=== PATIENT | female | born 1950 | race Caucasian/White ===

== ENCOUNTER 2016-06-30 14:20 | Emergency (ER) | payer MEDICAID ==
[2016-06-30] MEDS ORDERED: SUBLIMAZE 100 MCG/2 ML IV ONE (15:10)
[2016-06-30] MEDS ORDERED: Zofran 4 MG/2 ML VIAL IV ONE (15:10)
--- NOTE | 2016-06-30 15:13 | ERPHSYRPT ---
- History of Present Illness Time Seen by Provider: 06/30/16 14:45 Historian: patient Exam Limitations: clinical condition Patient Subjective Stated Complaint: PT CO PAIN TO RIGHT RIB FOR 5 DAYS NOW. AND SOB FOR ABOUT A WEEK NOW, NO CO OR FEVER, FLUSHED FEELING. NO COUGH. ALSO CO GERD WITH BLECHING THAT IS NEW FOR HER WHILE Triage Nursing Assessment: PT IS ALERT, SKIN W/D PINK,.RESP EASY, CHEST CLEAR, NO EDEMA NOTED, MOVES ALL EXT WELL , PT WAS ABLE TO WALK IN WITHOUT DIFFICULTY Physician History: PATIENT WITH HISTORY OF METASTATIC LEFT BREAST DISEASE TO HER THORCIC SPINE, COMPLAINS OF RIGHT SIDED RIB PAIN FOR 5 DAYS, PAIN UPON INSPIRATION AND MOTION OF TORSO. DENIES COUGH, DYSPNEA, FEVER, CHILLS AND DYSPNEA. DENIES INJURY OR TRAUMA. PATIENT COMPLAINS OF REFLUX SYMPTOMS BURPING AND BELCHING PAST WEEK. Timing/Duration: day(s) Activities at Onset: none Quality: sharpness Location: other (RIGHT LATERAL CHEST WALL PAIN) Severity of Pain-Max: mild Severity of Pain-Current: mild Modifying Factors: Improves With: breathing, movement, change in position Associated Symptoms: hurts to breathe Prior Chest Pain/Cardiac Workup: no prior chest pain Nitro Today/Relief: no nitro taken today Aspirin Treatment Today: no aspirin today Allergies/Adverse Reactions: palbociclib [From [place]] Allergy (Verified 06/30/16 14:44) Home Medications: Fulvestrant [Faslodex] 125 mg IM UD 01/30/16 [History] Gabapentin [Neurontin] 100 mg PO TID 01/30/16 [History] Hydrocodone Bit/Acetaminophen [[place] 5-325 Tablet] 1 each PO Q6H PRN 01/30/16 [ History] Naproxen [Naprosyn] 500 mg PO BID 01/30/16 [History] Hx Tetanus, Diphtheria Vaccination/Date Given: No Hx Influenza Vaccination/Date Given: No Hx Pneumococcal Vaccination/Date Given: No Immunizations Up to Date: Yes - Review of Systems Constitutional: No Fever, No Chills Eyes: No Symptoms Ears, Nose, & Throat: No Symptoms Respiratory: No Symptoms, No Cough, No Dyspnea Cardiac: Chest Pain, No Edema, No Syncope Abdominal/Gastrointestinal: No Symptoms, No Abdominal Pain, No Nausea, No Vomiting, No Diarrhea Genitourinary Symptoms: No Symptoms, No Dysuria Musculoskeletal: No Symptoms, No Back Pain, No Neck Pain Skin: No Symptoms, No Rash Neurological: No Symptoms, No Dizziness, No Focal Weakness, No Sensory Changes Psychological: No Symptoms Endocrine: No Symptoms All Other Systems: Reviewed and Negative - Past Medical History Pertinent Past Medical History: Yes Musculoskeletal History: Osteoporosis, Other Female Reproductive Disorders: Breast Cancer 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, - Past Surgical History Past Surgical History: Yes Female Surgical History: Mastectomy - Social History Smoking Status: Never smoker Exposure to second hand smoke: No Drug Use: none Patient Lives Alone: No - Female History Hx Last Menstrual Period: POST - Nursing Vital Signs Temperature: 97.2 F Temperature Source: Oral Pulse Rate: 92 Respiratory Rate: 16 Pain Intensity: 10 - Physical Exam General Appearance: no apparent distress, alert Eye Exam: PERRL/EOMI, eyes nml inspection Ears, Nose, Throat Exam: normal ENT inspection, moist mucous membranes Neck Exam: normal inspection, non-tender, supple, full range of motion Respiratory Exam: normal breath sounds, chest tenderness (RIGHT LATERAL RIBS MID 8TH TO 12TH, NO CREPITUS OR ECCHYTHMOSIS), lungs clear, No respiratory distress Cardiovascular Exam: regular rate/rhythm, normal heart sounds, normal peripheral pulses Gastrointestinal/Abdomen Exam: soft, normal bowel sounds, No tenderness, No mass Back Exam: normal inspection, No CVA tenderness, No vertebral tenderness Extremity Exam: normal inspection, normal range of motion Neurologic Exam: alert, oriented x 3, cooperative, normal mood/affect, sensation nml, No motor deficits Skin Exam: normal color, warm, dry SpO2: 97 Oxygen Delivery: Room Air - Course EKG Interpreted by Me: RATE, Sinus Rhythm, NORMAL AXIS - CT Exams Chest CT Interpretation: Discussed w/radiologist (NEGATIVE FOR PULMONARY EMBOLISM, NO ACUTE CARDIOPULMONARY ABNORMALITIES, T8 AND T11 COMPRESSION DEFORMITIES OF UNCERTAIN CHRONICITY, WORRISOME FOR PATHOLOGIC FRACTURES, OLD BILATERAL RIB FRACTURES) Ordered Tests: Active Orders 24 hr Category Date Time Status Channel Account Manager STAT Care 06/30/16 15:10 Active EKG-ER Only STAT Care 06/30/16 15:10 Active IV Insertion STAT Care 06/30/16 15:10 Active CHEST WITH CONTRAST [CT] Stat Exams 06/30/16 15:10 Completed CBC W DIFF Stat Lab 06/30/16 15:37 Completed CMP Stat Lab 06/30/16 15:37 Completed Manual Differential NC Stat Lab 06/30/16 15:37 Completed PROTIME WITH INR Stat Lab 06/30/16 15:37 Completed TROPONIN Q3H Lab 06/30/16 15:37 Completed TROPONIN Q3H Lab 06/30/16 18:15 Ordered TROPONIN Q3H Lab 06/30/16 21:15 Ordered TROPONIN Q3H Lab 07/01/16 00:15 Ordered TROPONIN Q3H Lab 07/01/16 03:15 Ordered Medication Summary Generic Name Dose Route Start Last Admin Trade Name Freq PRN Reason Stop Dose Admin Sodium Chloride 1,000 mls @ 100 mls/hr 06/30/16 15:15 06/30/16 15:45 Sodium Chloride 0.9% 1000 Ml IV 07/30/16 15:14 100 mls/hr .Q10H AIMEE Administration Discontinued Medications Generic Name Dose Route Start Last Admin Trade Name Freq PRN Reason Stop Dose Admin Fentanyl Citrate 50 mcg 06/30/16 15:10 06/30/16 15:44 Sublimaze 100 Mcg/2 Ml IV 06/30/16 15:11 50 mcg STAT ONE Administration Fentanyl Citrate Confirm 06/30/16 15:41 Sublimaze 100 Mcg/2 Ml Administered 06/30/16 15:42 Dose 100 mcg .ROUTE .STK-MED ONE Sodium Chloride Confirm 06/30/16 15:42 Sodium Chloride 0.9% 1000 Ml Administered 06/30/16 15:43 Dose 1,000 mls @ ud .ROUTE .STK-MED ONE Ondansetron HCl 4 mg 06/30/16 15:10 06/30/16 15:44 Zofran 4 Mg/2 Ml Vial IV 06/30/16 15:11 4 mg STAT ONE Administration Ondansetron HCl Confirm 06/30/16 15:41 Zofran 4 Mg/2 Ml Vial Administered 06/30/16 15:42 Dose 4 mg .ROUTE .STK-MED ONE Lab/Rad Data: Laboratory Result Diagrams 06/30/16 15:37 06/30/16 15:37 Laboratory Results 06/30/16 06/30/16 06/30/16 Range/Units 15:37 15:37 15:37 WBC (4.0-10.5) K/mm3 RBC (4.1-5.4) M/mm3 Hgb (12.0-16.0) gm/dl Hct (35-47) % MCV (78-100) fl MCH (26-32) pg MCHC (32-36) g/dl RDW (11.5-14.0) % Plt Count (150-450) K/mm3 MPV (6-9.5) fl INR 1.20 (0.8-3.0) Sodium 138 (136-145) mEq/L Potassium 3.5 (3.5-5.1) mEq/L Chloride 103 (98-107) mEq/L Carbon Dioxide 25.0 (21-32) mEq/L Anion Gap 13.7 (5-15) MEQ/L BUN 11 (9-20) mg/dL Creatinine 0.75 (0.55-1.30) mg/dl Estimated GFR > 60 ML/MIN Glucose 115 H (70-110) MG/DL Calcium 10.7 H (8.5-10.1) mg/dL Total Bilirubin 0.6 (0.2-1.0) mg/dL AST 42 H (15-37) U/L ALT 14 (12-78) U/L Alkaline Phosphatase 204 H (46-116) U/L Troponin I < 0.017 (0.000-0.056) ng/ml Serum Total Protein 7.9 (6.4-8.2) gm/dL Albumin 3.6 (3.4-5.0) g/dL 06/30/16 Range/Units 15:37 WBC 9.4 (4.0-10.5) K/mm3 RBC 4.23 (4.1-5.4) M/mm3 Hgb 13.5 (12.0-16.0) gm/dl Hct 40.1 (35-47) % MCV 94.8 (78-100) fl MCH 31.9 (26-32) pg MCHC 33.7 (32-36) g/dl RDW 13.3 (11.5-14.0) % Plt Count 192 (150-450) K/mm3 MPV 10.1 H (6-9.5) fl INR (0.8-3.0) Sodium (136-145) mEq/L Potassium (3.5-5.1) mEq/L Chloride (98-107) mEq/L Carbon Dioxide (21-32) mEq/L Anion Gap (5-15) MEQ/L BUN (9-20) mg/dL Creatinine (0.55-1.30) mg/dl Estimated GFR ML/MIN Glucose (70-110) MG/DL Calcium (8.5-10.1) mg/dL Total Bilirubin (0.2-1.0) mg/dL AST (15-37) U/L ALT (12-78) U/L Alkaline Phosphatase (46-116) U/L Troponin I (0.000-0.056) ng/ml Serum Total Protein (6.4-8.2) gm/dL Albumin (3.4-5.0) g/dL - Progress Progress: improved Progress Note: 06/30/16 17:42 PATIENT GIVEN IV FLUIDS NORMAL SALINE 100ML/HR, ZOFRAN 4MG, FENTANYL 50MCG IV Counseled pt/family regarding: lab results, diagnosis, need for follow-up, rad results - Departure Time of Disposition: 17:55 Departure Disposition: Home Clinical Impression: RIGHT CHEST WALL PAIN, OLD BILATERAL RIB FRACTURES, GASTROESOPHAGEAL REFLUX Condition: Stable Critical Care Time: No Additional Instructions: CONTINUE [place] 5/325 EVERY 4 HOURS FOR PAIN NEEDED. PEPCID 20MG TWICE DAILY FOR REFLUX SYMPTOMS. CONSULT YOUR ONCOLOGIST AND FAMILY PHYSICIAN FOR EVALUATION. Prescriptions: Hydrocodone Bit/Acetaminophen [[place] 5/325Mg] 1 each PO Q6H PRN PRN #10 tablet PRN Reason: Pain Famotidine 20 mg [Pepcid 20 MG] 20 mg PO BID #60 tablet
[2016-06-30] MEDS ORDERED: Sodium Chloride 0.9% 1000 ML 1,000 ML IV SCH (15:15)
[2016-06-30] MEDS ORDERED: SUBLIMAZE 100 MCG/2 ML ONE (15:41)
[2016-06-30] MEDS ORDERED: Zofran 4 MG/2 ML VIAL ONE (15:41)
[2016-06-30] MEDS ORDERED: Sodium Chloride 0.9% 1000 ML 1,000 ML ONE (15:42)
[2016-06-30 15:49] LABS: Mean Cell Volume 94.8 fl (78-100); Mean Corpuscular Hemoglobin 31.9 pg (26-32); Mean Platelet Volume 10.1 fl (6-9.5); Platelet Count 192 K/mm3 (150-450); Red Blood Count 4.23 M/mm3 (4.1-5.4); Red Cell Distribution Width 13.3 % (11.5-14.0); White Blood Count 9.4 K/mm3 (4.0-10.5)
[2016-06-30 16:02] LABS: INR 1.2 (0.8-3.0); PROTIME 13.4 SECONDS (9.95-12.35)
[2016-06-30 16:10] LABS: ALBUMIN 3.6 g/dL (3.4-5.0); ALKALINE PHOSPHATASE 204 U/L (46-116); ANION GAP 13.7 MEQ/L (5-15); BILIRUBIN,TOTAL 0.6 mg/dL (0.2-1.0); BLOOD UREA NITROGEN 11 mg/dL (9-20); CHLORIDE 103 mEq/L (98-107); Glucose 115 MG/DL (70-110); Potassium 3.5 mEq/L (3.5-5.1); SGOT/AST 42 U/L (15-37); SGPT/ALT 14 U/L (12-78); SODIUM 138 mEq/L (136-145); Total Protein 7.9 gm/dL (6.4-8.2)
--- NOTE | 2016-06-30 17:12 | XRAY ---
Indication: Short of breath and chest pain. Multiple contiguous axial images obtained through the chest using 80 cc Isovue 370 contrast and PE protocol. Comparison: None There is satisfactory opacification of the pulmonary arteries to include the lobar and segmental branches. No filling defect or pulmonary embolus. Heart is not enlarged. Aorta is normal in course and caliber. No pathologic mediastinal/hilar lymphadenopathy. There is a left-sided Port-A-Cath. Examination of the lung parenchyma demonstrates bibasilar and lingular subsegmental atelectasis/scarring. Mild subpleural fibrosis/scarring in the left upper lobe anteriorly. Anatomic variant for right apical azygos lobe. No suspicious pulmonary mass, infiltrate, consolidation, or effusion. Bony thorax demonstrates mild degenerative changes throughout the spine and old bilateral rib fractures. Thoracic spine demonstrates multilevel moth-eaten appearance probably metastatic. T8/T11 anterior compression deformities with 25-50% height loss of uncertain chronicity but no spinal canal stenosis. There has been left-sided mastectomy. Limited upper abdomen demonstrates incompletely visualized 1.5 cm inferior right hepatic lobe hypodense lesion, cyst versus metastasis. 1.3 cm right renal cortical cyst. Impression: 1. Negative for pulmonary embolus. No acute cardiopulmonary abnormalities. 2. Bilateral subsegmental atelectasis/scarring. Left upper lobe subpleural fibrosis/scarring possibly related to radiation therapy in this patient with left mastectomy. 3. Thoracic spine demonstrates multilevel moth-eaten appearance worrisome for metastasis. T8 and T11 compression deformities of uncertain chronicity but worrisome for pathologic fractures. Old bilateral rib fractures. 4. Partially visualized right lobe hepatic hypodense lesion, cyst versus metastasis. 5. Right renal cortical cyst. CT DI 10.64 CT DI 10.64
[2016-06-30 17:40] VITALS: O2SAT 97
[2016-06-30 17:58] VITALS: BP 111/70; PULSE 70
[2016-06-30 18:29] LABS: Eosinophil 1 % (0.00-3.0); Platelet Estimate NORMAL (NORMAL); Total Cells Counted 100
== END 2016-06-30 17:58 | disposition home or self-care (01) ==
LOC: ED 14:20
DX: R07.89 Other chest pain (principal); S22.32XD Fracture of one rib, left side, subsequent encounter for fracture with routine healing; S22.31XD Fracture of one rib, right side, subsequent encounter for fracture with routine healing; K21.9 Gastro-esophageal reflux disease without esophagitis; C50.912 Malignant neoplasm of unspecified site of left female breast; C79.89 Secondary malignant neoplasm of other specified sites
CPT/HCPCS: 36000; 36415; 71260; 80053; 84484; 85025; 85610; 93005; 93041; 96360; 96361; 96365; 96374; 96375; 99284; J2405; J3010

== ENCOUNTER 2016-07-11 23:51 | Observation (INO) | payer MEDICAID ==
[2016-07-12] MEDS ORDERED: TYLENOL 325 MG PO STA (00:12)
[2016-07-12] MEDS ORDERED: Sodium Chloride 0.9% 1000 ML 1,000 ML IV STA ×2 (00:12→01:12)
[2016-07-12] MEDS ORDERED: TYLENOL 325 MG ONE (00:18)
[2016-07-12] MEDS ORDERED: Sodium Chloride 0.9% 1000 ML 1,000 ML ONE ×2 (00:18→01:30)
[2016-07-12 00:22] LABS: Mean Cell Volume 93.3 fl (78-100); Mean Corpuscular Hemoglobin 30.6 pg (26-32); Mean Platelet Volume 10.3 fl (6-9.5); Platelet Count 238 K/mm3 (150-450); Red Blood Count 4.32 M/mm3 (4.1-5.4); Red Cell Distribution Width 13.5 % (11.5-14.0); White Blood Count 15.4 K/mm3 (4.0-10.5)
[2016-07-12] MEDS ORDERED: LEVOFLOXACIN 750MG/150ML D5W 150 ML IV ONE ×2 (00:25→00:27)
[2016-07-12 00:37] LABS: ALBUMIN 3.3 g/dL (3.4-5.0); ALKALINE PHOSPHATASE 298 U/L (46-116); BILIRUBIN,TOTAL 0.7 mg/dL (0.2-1.0); BLOOD UREA NITROGEN 12 mg/dL (9-20); CHLORIDE 97 mEq/L (98-107); Carbon Dioxide 24.1 mEq/L (21-32); Glucose 119 MG/DL (70-110); Potassium 3.7 mEq/L (3.5-5.1); SGOT/AST 78 U/L (15-37); SGPT/ALT 16 U/L (12-78); SODIUM 136 mEq/L (136-145); Total Protein 8.2 gm/dL (6.4-8.2)
[2016-07-12] MEDS ORDERED: Zofran 4 MG/2 ML VIAL ONE (00:44)
[2016-07-12] MEDS ORDERED: Zofran 4 MG/2 ML VIAL IV ONE (00:50)
[2016-07-12 00:55] LABS: Bacteria RARE /HPF (NEGATIVE); COMPLETE URINE MICROSCOPIC? YES; Collection Type CATH; Hyaline Casts 0-2 /LPF (0-2); Ph 6.5 (5-6)
[2016-07-12 01:52] LABS: ANISOCYTOSIS 1+; BAND 2 % (0.0-2.0); Platelet Estimate NORMAL (NORMAL); Total Cells Counted 100
[2016-07-12] MEDS ORDERED: PROTONIX 40 MG IV IV ONE ×2 (01:58→02:00)
--- NOTE | 2016-07-12 02:05 | ERPHSYRPT ---
- History of Present Illness Time Seen by Provider: 07/12/16 02:03 Source: patient Exam Limitations: no limitations Patient Subjective Stated Complaint: pt arr with several days of weakness and tonight she is short of breath with slight exertion -she denies cough states she was seen in er last week for right rib pain -she is receiving chemo for breast cancer -co nausea and vomited times one today -she has pain all over her body Triage Nursing Assessment: pt is awake and alert and able to answer questions - she is very weak -her mouth is dry and her teeth are sticking to her lips Physician History: pt arr with several days of weakness and tonight she is short of breath with slight exertion -she denies cough states she was seen in er last week for right rib pain -she is receiving chemo for breast cancer -co nausea and vomited times one today -she has pain all over her body Timing/Duration: day(s) Fever Severity: moderate Fever Therapy COMMUNICATIONS TOWER TECHNICIAN: none Associated Symptoms: headache, shortness of breath, weakness International travel in last 2 weeks: No Allergies/Adverse Reactions: palbociclib [From [place]] Allergy (Verified 06/30/16 14:44) Home Medications: Fulvestrant [Faslodex] 125 mg IM UD 01/30/16 [History] Gabapentin [Neurontin] 100 mg PO TID 01/30/16 [History] Hydrocodone Bit/Acetaminophen [[place] 5-325 Tablet] 1 each PO Q6H PRN 01/30/16 [ History] Naproxen [Naprosyn] 500 mg PO BID 01/30/16 [History] Hx Tetanus, Diphtheria Vaccination/Date Given: No Hx Influenza Vaccination/Date Given: No Hx Pneumococcal Vaccination/Date Given: No - Review of Systems Constitutional: Fever, Chills, Fatigue, Weakness Eyes: No Symptoms Ears, Nose, & Throat: No Symptoms Respiratory: Dyspnea on Exertion ([place]) Cardiac: No Symptoms Abdominal/Gastrointestinal: Appetite Changes Genitourinary Symptoms: No Symptoms Musculoskeletal: Joint Pain Skin: No Symptoms Neurological: No Symptoms Psychological: No Symptoms - Past Medical History Pertinent Past Medical History: Yes Musculoskeletal History: Osteoporosis, Other Female Reproductive Disorders: Breast Cancer 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, - Past Surgical History Past Surgical History: Yes Female Surgical History: Mastectomy - Social History Smoking Status: Never smoker Exposure to second hand smoke: No Drug Use: none Patient Lives Alone: No - Female History Hx Last Menstrual Period: na - Nursing Vital Signs Nursing Vital Signs: Initial Vital Signs Temperature 99.6 F Temperature Source Rectal Pulse Rate 84 Respiratory Rate 24 Blood Pressure [] 134/84 Pain Intensity 0 - Physical Exam General Appearance: mild distress, alert, cachetic Eye Exam: PERRL/EOMI ENT Exam: normal ENT inspection, No pharyngeal erythema, No tonsillar exudate Neck Exam: supple, full range of motion, No meningismus Respiratory Exam: decreased breath sounds, decreased air movement Cardiovascular/Chest Exam: normal heart sounds, regular rate/rhythm, No murmur, No edema Gastrointestinal/Abdominal Exam: soft, non tender, no distention Extremity Exam: non-tender, normal range of motion, normal inspection, normal capillary refill Neurologic Exam: alert, oriented x 3, cooperative, capital project engineer II-XII nml as tested, normal mood/affect, sensation nml, No motor deficits Skin Exam: normal color, warm, dry, No rash SpO2: 100 Oxygen Delivery: Nasal Cannula - Course Nursing assessment & vital signs reviewed: Yes - Radiology Exams Chest X-ray Interpretation: Reviewed by me, Negative Ordered Tests: Active Orders 24 hr Category Date Time Status Oxygen-ED Only NASAL CANNULA 2 lpm Care 07/12/16 00:12 Active cath [Cath for Specimen-Straight] STAT Care 07/12/16 00:28 Active CHEST 1 VIEW (PORTABLE) Stat Exams 07/12/16 00:19 Taken BLOOD CULTURE Stat Lab 07/12/16 00:25 Received CBC W DIFF Stat Lab 07/12/16 00:15 Completed CMP Stat Lab 07/12/16 00:15 Completed Lactic Acid Urgent Lab 07/12/16 00:12 Completed Manual Differential NC Stat Lab 07/12/16 00:15 Completed UA W/ MICROSCOPIC Stat Lab 07/12/16 00:30 Completed Medication Summary Discontinued Medications Generic Name Dose Route Start Last Admin Trade Name Freq PRN Reason Stop Dose Admin Acetaminophen 650 mg 07/12/16 00:12 07/12/16 00:20 Tylenol 325 Mg PO 07/12/16 00:13 650 mg STAT STA Administration Acetaminophen Confirm 07/12/16 00:18 Tylenol 325 Mg Administered 07/12/16 00:19 Dose 650 mg .ROUTE .STK-MED ONE Sodium Chloride 1,000 mls @ 999 mls/hr 07/12/16 00:12 07/12/16 00:23 Sodium Chloride 0.9% 1000 Ml IV 07/12/16 01:12 999 mls/hr .Q1H1M STA Administration Sodium Chloride Confirm 07/12/16 00:18 Sodium Chloride 0.9% 1000 Ml Administered 07/12/16 00:19 Dose 1,000 mls @ ud .ROUTE .STK-MED ONE Levofloxacin/Dextrose 150 mls @ 100 mls/hr 07/12/16 00:25 07/12/16 00:40 Levofloxacin 750mg/150ml D5w IV 07/12/16 01:54 100 mls/hr STAT ONE Administration Levofloxacin/Dextrose Confirm 07/12/16 00:27 Levofloxacin 750mg/150ml D5w Administered 07/12/16 00:28 Dose 150 mls @ ud IV .STK-MED ONE Sodium Chloride 1,000 mls @ 999 mls/hr 07/12/16 01:12 07/12/16 02:01 Sodium Chloride 0.9% 1000 Ml IV 07/12/16 02:12 999 mls/hr .Q1H1M STA Administration Sodium Chloride Confirm 07/12/16 01:30 Sodium Chloride 0.9% 1000 Ml Administered 07/12/16 01:31 Dose 1,000 mls @ ud .ROUTE .STK-MED ONE Ondansetron HCl Confirm 07/12/16 00:44 Zofran 4 Mg/2 Ml Vial Administered 07/12/16 00:45 Dose 4 mg .ROUTE .STK-MED ONE Ondansetron HCl 4 mg 07/12/16 00:50 07/12/16 00:52 Zofran 4 Mg/2 Ml Vial IV 07/12/16 00:51 4 mg STAT ONE Administration Pantoprazole Sodium 40 mg 07/12/16 01:58 07/12/16 02:01 Protonix 40 Mg Iv IV 07/12/16 01:59 40 mg STAT ONE Administration Pantoprazole Sodium Confirm 07/12/16 02:00 Protonix 40 Mg Iv Administered 07/12/16 02:01 Dose 40 mg IV .STK-MED ONE Lab/Rad Data: Laboratory Result Diagrams 07/12/16 00:15 07/12/16 00:15 Laboratory Results 07/12/16 07/12/16 07/12/16 Range/Units 00:50 00:30 00:15 WBC (4.0-10.5) K/mm3 RBC (4.1-5.4) M/mm3 Hgb (12.0-16.0) gm/dl Hct (35-47) % MCV (78-100) fl MCH (26-32) pg MCHC (32-36) g/dl RDW (11.5-14.0) % Plt Count (150-450) K/mm3 MPV (6-9.5) fl Segmented Neutrophils (36.0-66.0) % Band Neutrophils (0.0-2.0) % Lymphocytes (Manual) (24-44) % Monocytes (Manual) (0.0-12.0) % Differential Comment Platelet Estimate (NORMAL) Anisocytosis Sodium 136 (136-145) mEq/L Potassium 3.7 (3.5-5.1) mEq/L Chloride 97 L (98-107) mEq/L Carbon Dioxide 24.1 (21-32) mEq/L Anion Gap 19.0 H (5-15) MEQ/L BUN 12 (9-20) mg/dL Creatinine 0.69 (0.55-1.30) mg/dl Estimated GFR > 60 ML/MIN Glucose 119 H (70-110) MG/DL Lactic Acid (0.4-2.0) Calcium 11.6 H (8.5-10.1) mg/dL Total Bilirubin 0.7 (0.2-1.0) mg/dL AST 78 H (15-37) U/L ALT 16 (12-78) U/L Alkaline Phosphatase 298 H (46-116) U/L Serum Total Protein 8.2 (6.4-8.2) gm/dL Albumin 3.3 L (3.4-5.0) g/dL Ur Collection Type CATH Urine Color YELLOW (YELLOW) Urine Appearance CLEAR (CLEAR) Urine pH 6.5 (5-6) Ur Specific [place] 1.015 (1.005-1.025) Urine Protein 30 (Negative) Urine Glucose (UA) NEGATIVE (NEGATIVE) mg/dL Urine Ketones >=160 (NEGATIVE) Urine Nitrite NEGATIVE (NEGATIVE) Urine Bilirubin SMALL (NEGATIVE) Urine Urobilinogen 1 (0-1) mg/dL Urine WBC (Auto) NEGATIVE (NEGATIVE) Urine RBC (Auto) NEGATIVE (0-5) Marv/ul Urine Bacteria RARE (NEGATIVE) /HPF Hyaline Casts 0-2 (0-2) /LPF Influenza Type A Ag NEGATIVE (NEGATIVE) Influenza Type B Ag NEGATIVE (NEGATIVE) RSV (PCR) NEGATIVE (Negative) Specimen Received 07/12/16:0030 07/12/16 07/12/16 Range/Units 00:15 00:12 WBC 15.4 H (4.0-10.5) K/mm3 RBC 4.32 (4.1-5.4) M/mm3 Hgb 13.2 (12.0-16.0) gm/dl Hct 40.3 (35-47) % MCV 93.3 (78-100) fl MCH 30.6 (26-32) pg MCHC 32.8 (32-36) g/dl RDW 13.5 (11.5-14.0) % Plt Count 238 (150-450) K/mm3 MPV 10.3 H (6-9.5) fl Segmented Neutrophils 40 (36.0-66.0) % Band Neutrophils 2 (0.0-2.0) % Lymphocytes (Manual) 55 H (24-44) % Monocytes (Manual) 3 (0.0-12.0) % Differential Comment ABNORMAL Platelet Estimate NORMAL (NORMAL) Anisocytosis 1+ Sodium (136-145) mEq/L Potassium (3.5-5.1) mEq/L Chloride (98-107) mEq/L Carbon Dioxide (21-32) mEq/L Anion Gap (5-15) MEQ/L BUN (9-20) mg/dL Creatinine (0.55-1.30) mg/dl Estimated GFR ML/MIN Glucose (70-110) MG/DL Lactic Acid 2.0 (0.4-2.0) Calcium (8.5-10.1) mg/dL Total Bilirubin (0.2-1.0) mg/dL AST (15-37) U/L ALT (12-78) U/L Alkaline Phosphatase (46-116) U/L Serum Total Protein (6.4-8.2) gm/dL Albumin (3.4-5.0) g/dL Ur Collection Type Urine Color (YELLOW) Urine Appearance (CLEAR) Urine pH (5-6) Ur Specific [place] (1.005-1.025) Urine Protein (Negative) Urine Glucose (UA) (NEGATIVE) mg/dL Urine Ketones (NEGATIVE) Urine Nitrite (NEGATIVE) Urine Bilirubin (NEGATIVE) Urine Urobilinogen (0-1) mg/dL Urine WBC (Auto) (NEGATIVE) Urine RBC (Auto) (0-5) Marv/ul Urine Bacteria (NEGATIVE) /HPF Hyaline Casts (0-2) /LPF Influenza Type A Ag (NEGATIVE) Influenza Type B Ag (NEGATIVE) RSV (PCR) (Negative) Specimen Received - Progress Progress: unchanged Will see patient in: hospital (observation) Counseled pt/family regarding: lab results, diagnosis, need for follow-up, rad results - Departure Time of Disposition: 02:19 Departure Disposition: Observation Clinical Impression: Metastatic breast cancer Fever Qualifiers: Fever type: unspecified Qualified Code(s): R50.9 - Fever, unspecified Condition: Fair Critical Care Time: Yes Critical Care Time(excluding separately billable procedures): 30-74 minutes Referrals: ROD NOWAK [Primary Care Provider] -
[2016-07-12] MEDS ORDERED: Zofran 4 MG/2 ML VIAL IV PRN (03:11)
[2016-07-12] MEDS ORDERED: PROTONIX 40 MG IV IV SCH ×2 (03:11→10:00)
[2016-07-12] MEDS ORDERED: Levofloxacin 500MG/100ML D5W 100 ML IV SCH (03:11)
[2016-07-12] MEDS: Sodium Chloride 0.9% W/ 20 mEq KCl/LITER 1,000 ML IV SCH ×3 (04:33→21:32)
--- NOTE | 2016-07-12 08:15 | XRAY ---
Indication: Fever. History of metastatic breast cancer. Comparison: None. There is a CT chest of June 30, 2016. Portable chest underinflated without focal infiltrate, consolidation, or large effusion. Heart is not enlarged. Left-sided Port-A-Cath. Bony thorax demonstrates old bilateral rib fractures. Impression: Nonacute underinflated chest with chronic features.
[2016-07-12] MEDS: Pepcid 20 MG PO SCH ×2 (09:12→21:29)
[2016-07-12] MEDS: NORCO 5/325 MG PO PRN ×3 (09:12→21:29)
[2016-07-12] MEDS: Neurontin 100 MG PO SCH ×3 (09:13→21:29)
[2016-07-12] MEDS: Protonix 40MG Tablet PO SCH (09:15)
[2016-07-12] MEDS: MORPHINE SULFATE 2 MG INJ IV PRN ×2 (09:21→19:11)
[2016-07-12] MEDS ORDERED: NON-FORMULARY ITEM (Omeprazole 20 Mg [Prilosec 20 Mg] 20 MG) PO SCH (10:00)
[2016-07-12] MEDS ORDERED: FLUZONE QUAD 2016-2017 SYRINGE 36MO-64YO IM ONE (10:00)
[2016-07-13] MEDS: NORCO 5/325 MG PO PRN ×2 (03:53→17:20)
[2016-07-13] MEDS: Protonix 40MG Tablet PO SCH (07:54)
[2016-07-13] MEDS: MORPHINE SULFATE 2 MG INJ IV PRN (07:54)
[2016-07-13] MEDS: Neurontin 100 MG PO SCH ×3 (07:54→22:27)
[2016-07-13] MEDS: Pepcid 20 MG PO SCH ×2 (07:54→22:27)
[2016-07-13] MEDS: Sodium Chloride 0.9% W/ 20 mEq KCl/LITER 1,000 ML IV SCH ×2 (09:14→19:53)
[2016-07-13] MEDS ORDERED: Levofloxacin 500MG/100ML D5W 100 ML IV SCH (22:00)
[2016-07-14 05:32] LABS: Mean Cell Volume 95.6 fl (78-100); Mean Corpuscular Hemoglobin 30.8 pg (26-32); Mean Platelet Volume 10.8 fl (6-9.5); Platelet Count 144 K/mm3 (150-450); Red Blood Count 3.44 M/mm3 (4.1-5.4); Red Cell Distribution Width 13.6 % (11.5-14.0); White Blood Count 10.8 K/mm3 (4.0-10.5)
[2016-07-14 06:03] LABS: ALBUMIN 2.5 g/dL (3.4-5.0); ALKALINE PHOSPHATASE 315 U/L (46-116); BILIRUBIN,TOTAL 0.6 mg/dL (0.2-1.0); BLOOD UREA NITROGEN 4 mg/dL (9-20); CHLORIDE 100 mEq/L (98-107); Carbon Dioxide 22.8 mEq/L (21-32); Glucose 110 MG/DL (70-110); Potassium 4.1 mEq/L (3.5-5.1); SGOT/AST 153 U/L (15-37); SGPT/ALT 15 U/L (12-78); SODIUM 135 mEq/L (136-145); Total Protein 6.6 gm/dL (6.4-8.2)
[2016-07-14] MEDS: Sodium Chloride 0.9% W/ 20 mEq KCl/LITER 1,000 ML IV SCH ×2 (06:54→17:43)
[2016-07-14] MEDS: NORCO 5/325 MG PO PRN ×2 (07:51→20:28)
--- NOTE | 2016-07-14 08:54 | HP ---
HISTORY OF PRESENT ILLNESS: Ms. Anne is a 65 y/o woman with past medical history of metastatic breast cancer and osteoporosis. She presented to the Emergency Room early yesterday morning now with symptoms of generalized weakness for 2-3 days. Also, she had reported some mild shortness of breath, nausea, and vomiting X 1. She had complained of generalized achiness. She was noted to be alert, awake, and able to answer questions. However, was very weak. Upon initial evaluation in the Emergency Room, she was noted to have BP of 134/84, heart rate 84, respiratory rate 24, temperature 99.6. She was treated with Tylenol 650 mg PO X 1, Levaquin 750 mg IV X 1, NS 1 liter, Zofran 4 mg IV X 1, and Protonix 40 mg IV X 1. Subsequently, she was admitted to medical floor for further monitoring and management. Since admission, her course has been essentially, more or less, unremarkable. At the time of this evaluation, she is alert, awake, and comfortable. Complains of fatigue and generalized weakness. She states she did not have any further vomiting and has been able to tolerate diet. PAST MEDICAL HISTORY: As noted above. Patient has history of cancer of spine. PAST SURGICAL HISTORY: Status post mastectomy (left). FAMILY HISTORY: Noncontributory. SOCIAL HISTORY: Patient lives at home. Patient has no history of smoking. ALLERGIES: PALBOCICLIB. CURRENT MEDICATIONS: Home medications were reviewed. REVIEW OF SYSTEMS: Denies headache or dizziness. Complaints of generalized weakness. Complains of fatigue. Denies fever. Denied chest pain. Had reported some shortness of breath yesterday. However, that has resolved. Reportedly, she was also seen for right rib pain about 10 days ago and was discharged. Denies any pain at this time. Denies palpitations. Denies cough. Denies abdominal pain. History of nausea, vomiting X 1 that has resolved. Denies urinary complaints. Denies constipation or diarrhea. PHYSICAL EXAMINATION: Elderly frail woman lying comfortably in bed. Not in acute distress. VITAL SIGNS: BP 124/57, heart rate 95, respiratory rate 18, temperature 98.4, O2 saturations of 93%, temperature maximum of 100.7. HEENT: Pallor is present. NECK: No JVD is present. CVS: S1 and S2 present. RESPIRATORY: Breath sounds bilaterally diminished and clear to auscultation. ABDOMEN: Soft, nontender. NEURO: She is alert and oriented X 3. Evaluation of motor strength in bilateral upper and lower extremities reveals grossly intact motor strength. EXTREMITIES: Reveals no edema on bilateral lower extremities. LABORATORY DATA: On admission, are notable for CBC with WBC of 15.4, Hgb 13.2, Hct 40.3, platelets 238. CMP shows glucose 119, calcium 11.6, AST 78, ALT 298. Lactic acid is 2.0. UA shows more than 160 ketones, presence of protein, rare bacteria. Flu A/B and respiratory syncytial virus are negative. Blood cultures from 07/12/16 are pending. Chest x-ray shows nonacute, underinflated chest with chronic features. ASSESSMENT: 65 y/o woman with impression: 1. GENERALIZED WEAKNESS. 2. NAUSEA/VOMITING, NOW RESOLVED. 3. URINARY TRACT INFECTION. 4. HISTORY OF GASTROESOPHAGEAL REFLUX DISEASE. 5. HISTORY OF METASTATIC BREAST CANCER. 6. ABNORMAL LIVER FUNCTION TEST. 7. LOW GRADE FEVER - RESOLVED. PLAN: 1. Continue IV fluids. 2. Continue proton pump inhibitors. 3. Continue broad spectrum IV antibiotics. 4. Continue to follow CBC, Lytes, and cultures. The patient's clinical condition, work-up results, and plan of management were discussed with her. She seems to be in understanding and agreement. Discussed with patient's nurse and briefcase sewer.
[2016-07-14] MEDS: Pepcid 20 MG PO SCH ×2 (10:02→20:26)
[2016-07-14] MEDS: Protonix 40MG Tablet PO SCH (10:02)
[2016-07-14] MEDS: Neurontin 100 MG PO SCH ×3 (10:02→20:25)
--- NOTE | 2016-07-14 13:26 | PCM.NOTE ---
Date and Time: 07/14/16 1326 Subjective Assessment: doing better - Review of Systems Constitutional: No Fever, No Chills Eyes: No Symptoms Ears, Nose, & Throat: No Symptoms Respiratory: No Cough, No Short Of Breath Cardiac: No Chest Pain, No Edema, No Syncope Abdominal/Gastrointestinal: No Abdominal Pain, No Nausea, No Vomiting, No Diarrhea Genitourinary Symptoms: No Dysuria Musculoskeletal: No Back Pain, No Neck Pain Skin: No Rash Neurological: No Dizziness, No Focal Weakness, No Sensory Changes Psychological: No Symptoms Endocrine: No Symptoms Hematologic/Lymphatic: No Symptoms Immunological/Allergic: No Symptoms Objective Exam General Appearance: no apparent distress, alert Neurologic Exam: alert, oriented x 3, cooperative, normal mood/affect, nml cerebellar function, sensation nml, No motor deficits Skin Exam: normal color, warm, dry Eye Exam: PERRL, EOMI, eyes nml inspection Ears, Nose, Throat Exam: normal ENT inspection, pharynx normal, moist mucous membranes Neck Exam: normal inspection, non-tender, supple, full range of motion Respiratory Exam: normal breath sounds, lungs clear, No respiratory distress Cardiovascular Exam: regular rate/rhythm, normal heart sounds Gastrointestinal/Abdomen Exam: soft, No tenderness, No mass Extremity Exam: normal inspection, normal range of motion Back Exam: normal inspection, normal range of motion, No CVA tenderness, No vertebral tenderness Pelvic Exam: deferred Rectal Exam: deferred OBJECTIVE DATA Vital Signs: Vital Signs - 24 hr Temp Pulse Resp BP Pulse Ox 07/14/16 12:00 97.6 F 83 16 125/57 96 07/14/16 08:00 98.8 F 92 H 16 118/55 97 07/14/16 04:00 98.6 F 105 H 16 113/56 93 L 07/13/16 23:59 98.7 F 100 H 18 120/64 98 07/13/16 20:00 97.8 F 68 16 118/57 97 07/13/16 16:26 98.8 F 96 H 18 117/61 94 L Oxygen-Last 24 hours O2 Percentage 2 Liters = 28% O2 Percentage 2 Liters = 28% O2 Percentage 2 Liters = 28% Pain Assessment - Last Documented Pain Intensity 1 Pain Scale Used 0-10 Pain Scale Intake and Output: Intake & Output 07/12/16 07/13/16 07/14/16 07/15/16 11:59 11:59 11:59 11:59 Intake Total 120 3268 3714 Output Total 3300 2900 300 Balance 120 -32 814 -300 Weight 50.576 kg Lab Results: Lab Results-Last 24 Hours 07/14/16 07/14/16 Range/Units 05:00 05:05 WBC 10.8 H (4.0-10.5) K/mm3 RBC 3.44 L (4.1-5.4) M/mm3 Hgb 10.6 L (12.0-16.0) gm/dl Hct 32.9 L (35-47) % MCV 95.6 (78-100) fl MCH 30.8 (26-32) pg MCHC 32.2 (32-36) g/dl RDW 13.6 (11.5-14.0) % Plt Count 144 L (150-450) K/mm3 MPV 10.8 H (6-9.5) fl Sodium 135 L (136-145) mEq/L Potassium 4.1 (3.5-5.1) mEq/L Chloride 100 (98-107) mEq/L Carbon Dioxide 22.8 (21-32) mEq/L Anion Gap 16.0 H (5-15) MEQ/L BUN 4 L (9-20) mg/dL Creatinine 0.51 L (0.55-1.30) mg/dl Estimated GFR > 60 ML/MIN Glucose 110 (70-110) MG/DL Calcium 9.5 (8.5-10.1) mg/dL Total Bilirubin 0.6 (0.2-1.0) mg/dL AST 153 H (15-37) U/L ALT 15 (12-78) U/L Alkaline Phosphatase 315 H (46-116) U/L Serum Total Protein 6.6 (6.4-8.2) gm/dL Albumin 2.5 L (3.4-5.0) g/dL Radiology Exams: Radiology Procedures Category Date Time Status CHEST 2 VIEWS (PA AND LAT) Urgent Exams 07/15/16 13:15 Ordered Assessment/Plan (1) Fever Current Visit: Yes Status: Acute Qualifiers: Fever type: unspecified Qualified Code(s): R50.9 - Fever, unspecified Code(s): R50.9 - FEVER, UNSPECIFIED (2) Metastatic breast cancer Current Visit: Yes Status: Chronic Code(s): C50.919 - MALIGNANT NEOPLASM OF UNSP SITE OF UNSPECIFIED FEMALE BREAST; C79.9 - SECONDARY MALIGNANT NEOPLASM OF UNSPECIFIED SITE
[2016-07-15] MEDS: Sodium Chloride 0.9% W/ 20 mEq KCl/LITER 1,000 ML IV SCH (03:47)
[2016-07-15] MEDS: NORCO 5/325 MG PO PRN (03:47)
[2016-07-15 06:07] LABS: Mean Cell Volume 95.7 fl (78-100); Mean Platelet Volume 10.5 fl (6-9.5); Platelet Count 165 K/mm3 (150-450); Red Blood Count 3.26 M/mm3 (4.1-5.4); Red Cell Distribution Width 13.6 % (11.5-14.0); White Blood Count 10.7 K/mm3 (4.0-10.5)
[2016-07-15 06:11] LABS: Mean Corpuscular Hemoglobin 30.6 pg (26-32)
[2016-07-15] MEDS: Protonix 40MG Tablet PO SCH (07:56)
[2016-07-15] MEDS: Pepcid 20 MG PO SCH (07:56)
[2016-07-15] MEDS: Neurontin 100 MG PO SCH (07:56)
--- NOTE | 2016-07-15 09:15 | XRAY ---
Indication: Fever. History of metastatic breast cancer. Comparison: July 12, 2016. PA/lateral chest better inflated today with now minimal bibasilar atelectasis/scarring. No focal infiltrate, consolidation, or large effusion. Heart is not enlarged with stable left Port-A-Cath. Bony thorax again demonstrates old bilateral rib fractures. There are multilevel thoracic compression deformities of uncertain chronicity. Impression: Nonacute chest. Multilevel thoracic compression deformities of uncertain chronicity not well-seen on previous portable chest but CT documented bony metastasis.
[2016-07-15 11:37] VITALS: BP 119/56; PULSE 89; O2SAT 94
--- NOTE | 2016-07-15 12:41 | PCM.DS ---
Discharge Summary Date of Admission: 07/12/16 02:57 Admitting Physician: OLIVERIO GAR Primary Care Provider: OLIVERIO GAR Allergies Allergies palbociclib [From Ibrance] Allergy (Verified 07/12/16 03:19) [facility] Summary - Hospital Course Hospital Course: Patient came to ER with generalised weakness, has hx of metastatic breast cancer. Patient admitted with Dx of dehydration, hypokalemia and early sepsis. Patient underwent IV antibiotics therapy. Patient remain afebrile. weakness improved. is being discharged home today. Chief Complaint Diagnosis febrile, metastatic breast cancer, weakness Allergies Allergy/AdvReac Type Severity Reaction Status Date / Time pal[facility]ociclib [[facility] Allergy [facility] Verified 07/12/16 03:19 Vital Signs (Last 24 hours) Temp Pulse Resp BP Pulse Ox 07/15/16 11:37 98.4 F 89 18 119/56 94 L 07/15/16 07:02 97.6 F 87 18 112/57 92 L 07/15/16 04:00 99.2 F 89 19 137/64 96 07/14/16 23:38 98.1 F 81 17 115/53 96 07/14/16 20:00 98.8 F 90 19 121/56 96 07/14/16 15:56 98.2 F 88 18 133/60 96 Home Medications Medication Instructions Recorded Confirmed Last Taken Type Omeprazole 20 MG [Prilosec 20 mg] 20 mg PO DAILY 07/12/16 07/12/16 Unknown History Levofloxacin [Levaquin] 250 mg PO DAILY #7 tablet 07/15/16 Unknown Rx Current Medications Generic Name Dose Route Start Last Admin Trade Name Freq PRN Reason Stop Dose Admin Acetaminophen/Hydrocodone Bitart 1 tab 07/12/16 08:31 07/15/16 03:47 [place] 5/325 Mg PO 07/17/16 08:30 1 tab Q6H PRN PRN Administration PAIN Famotidine 20 mg 07/12/16 10:00 07/15/16 07:56 Pepcid 20 Mg PO 08/11/16 09:59 20 mg BID AIMEE Administration Gabapentin 100 mg 07/12/16 10:00 07/15/16 07:56 Neurontin 100 Mg PO 08/11/16 09:59 100 mg TID AIMEE Administration Potassium Chloride/Sodium Chloride 1,000 mls @ 100 mls/hr 07/12/16 03:11 07/28 03:47 Sodium Chloride 0.9% W/ 20 Meq Kcl/Liter IV 08/11/16 03:10 100 mls/hr .Q10H AIMEE Administration Levofloxacin/Dextrose 100 mls @ 100 mls/hr 07/13/16 22:00 07/13/16 22:28 Levofloxacin 500mg/100ml D5w IV 08/12/16 21:59 100 mls/hr Q48H AIMEE Administration Morphine Sulfate 2 mg 07/12/16 03:11 07/13/16 07:54 Morphine Sulfate 2 Mg Inj IV 07/17/16 03:10 2 mg Q4H PRN PRN Administration PAIN Ondansetron HCl 4 mg 07/12/16 03:11 07/14/16 07:42 Zofran 4 Mg/2 Ml Vial IV 08/11/16 03:10 4 mg Q6H PRN PRN Administration NAUSEA/VOMITING Pantoprazole Sodium 40 mg 07/12/16 10:00 07/15/16 07:56 Protonix 40mg Tablet PO 08/11/16 09:59 40 mg DAILY AIMEE Administration Discontinued Medications Generic Name Dose Route Start Last Admin Trade Name Freq PRN Reason Stop Dose Admin Acetaminophen 650 mg 07/12/16 00:12 07/12/16 00:20 Tylenol 325 Mg PO 07/12/16 00:13 650 mg STAT STA Administration Acetaminophen Confirm 07/12/16 00:18 Tylenol 325 Mg Administered 07/12/16 00:19 Dose 650 mg .ROUTE .STK-MED ONE Sodium Chloride 1,000 mls @ 999 mls/hr 07/12/16 00:12 07/12/16 00:23 Sodium Chloride 0.9% 1000 Ml IV 07/12/16 01:12 999 mls/hr .Q1H1M STA Administration Sodium Chloride Confirm 07/12/16 00:18 Sodium Chloride 0.9% 1000 Ml Administered 07/12/16 00:19 Dose 1,000 mls @ ud .ROUTE .STK-MED ONE Levofloxacin/Dextrose 150 mls @ 100 mls/hr 07/12/16 00:25 07/12/16 00:40 Levofloxacin 750mg/150ml D5w IV 07/12/16 01:54 100 mls/hr STAT ONE Administration Levofloxacin/Dextrose Confirm 07/12/16 00:27 Levofloxacin 750mg/150ml D5w Administered 07/12/16 00:28 Dose 150 mls @ ud IV .STK-MED ONE Sodium Chloride 1,000 mls @ 999 mls/hr 07/12/16 01:12 07/12/16 01:30 Sodium Chloride 0.9% 1000 Ml IV 07/12/16 02:12 999 mls/hr .Q1H1M STA Administration Sodium Chloride Confirm 07/12/16 01:30 Sodium Chloride 0.9% 1000 Ml Administered 07/12/16 01:31 Dose 1,000 mls @ ud .ROUTE .STK-MED ONE Levofloxacin/Dextrose 100 mls @ 100 mls/hr 07/12/16 03:11 07/12/16 03:13 Levofloxacin 500mg/100ml D5w IV 08/11/16 03:10 Not Given Q48H AIMEE Influenza Virus Vaccine Quadrival 0.5 ml 07/12/16 10:00 07/12/16 09:14 Fluzone Quad 4751-6643 Syringe 36mo-64yo IM 07/12/16 10:01 0.5 ml .ONCE ONE Administration Ondansetron HCl Confirm 07/12/16 00:44 Zofran 4 Mg/2 Ml Vial Administered 07/12/16 00:45 Dose 4 mg .ROUTE .STK-MED ONE Ondansetron HCl 4 mg 07/12/16 00:50 07/12/16 00:52 Zofran 4 Mg/2 Ml Vial IV 07/12/16 00:51 4 mg STAT ONE Administration Pantoprazole Sodium 40 mg 07/12/16 01:58 07/12/16 02:01 Protonix 40 Mg Iv IV 07/12/16 01:59 40 mg STAT ONE Administration Pantoprazole Sodium Confirm 07/12/16 02:00 Protonix 40 Mg Iv Administered 07/12/16 02:01 Dose 40 mg IV .STK-MED ONE Pantoprazole Sodium 40 mg 07/12/16 03:11 07/12/16 03:14 Protonix 40 Mg Iv IV 08/11/16 03:10 Not Given Q24H AIMEE Pantoprazole Sodium 40 mg 07/12/16 10:00 Protonix 40 Mg Iv IV 08/11/16 03:10 Q24H10 AIMEE Intake & Output (Last 24 hours) 07/13/16 07/14/16 07/15/16 07/16/16 11:59 11:59 11:59 11:59 Intake Total 3268 3714 3006 Output Total 3300 2900 900 Balance -32 814 2106 Laboratory Results (Last 24 hours) 07/15/16 07/15/16 05:40 05:40 WBC 10.7 H RBC 3.26 L Hgb 10.0 L Hct 31.2 L MCV 95.7 MCH 30.6 MCHC 32.1 RDW 13.6 Plt Count 165 MPV 10.5 H Anion Gap Orders (Last 24 hours) Category Date Time Status Discharge Routine Discharge 07/15/16 11:25 Ordered Discharge/Telephone Order Routine Discharge 07/15/16 11:25 Active CHEST 2 VIEWS (PA AND LAT) Urgent Exams 07/15/16 13:15 Completed CBC AM.LAB Lab 07/15/16 05:40 Completed CMP AM.LAB Lab 07/15/16 05:40 Completed Patient Care Notes (Last 24 hours) 07/15/16 12:25 Nursing Note by Sharmaine Bean manual bp 198/98 Initialized on 07/15/16 12:25 - END OF NOTE 07/14/16 13:00 (created 07/15/16 08:48) Case Management Note by Yadira Sherwood DR. ROUNDED AND EVALUATED PT. REPORTS THAT SHE LIVES ALONE, PROVIDES SELF CARE. DR. REYEZ HAD DISCUSSION WITH PT REGARDING HER PROGNOSIS AND THAT SHE IS LIKELY GOING TO BE NEEDING HELP AT HOME IN THE NEAR FUTURE. ENCOURAGED PT TO HAVE DISCUSSION WITH CHILDREN. DISCUSSED WITH PT THAT SHE IS GOING TO NEED THE FAMILY SUPPORT. PT VERBALIZED UNDERSTANDING. REPORTS TO DR. REYEZ THAT SHE WILL HAVE DISCUSSION WITH HER CHILDREN. DECLINED ADDNL NEEDS. DID DISCUSS HHC WITH PT. REQUESTS TO HOLD AT THIS TIME. WILL CONTINUE TO FOLLOW AND ASSESS FOR ALL DC NEEDS. Initialized on 07/15/16 08:48 - END OF NOTE - Vitals & Intake/Output Vital Signs: Vital Signs Temperature 98.4 F 07/15/16 11:37 Pulse Rate 89 07/15/16 11:37 Respiratory Rate 18 07/15/16 11:37 Blood Pressure 119/56 07/15/16 11:37 O2 Sat by Pulse Oximetry 94 L 07/15/16 11:37 Oxygen-Last Documented O2 Percentage 2 Liters = 28% Intake & Output: Intake & Output 07/13/16 07/14/16 07/15/16 07/16/16 11:59 11:59 11:59 11:59 Intake Total 3268 3714 3006 Output Total 3300 2900 900 Balance -32 814 2106 - Lab Result Diagrams: 07/15/16 05:40 07/14/16 05:00 Lab Results-Last 24 Hrs: Lab Results-Last 24 Hours 07/15/16 07/15/16 Range/Units 05:40 05:40 WBC 10.7 H (4.0-10.5) K/mm3 RBC 3.26 L (4.1-5.4) M/mm3 Hgb 10.0 L (12.0-16.0) gm/dl Hct 31.2 L (35-47) % MCV 95.7 (78-100) fl MCH 30.6 (26-32) pg MCHC 32.1 (32-36) g/dl RDW 13.6 (11.5-14.0) % Plt Count 165 (150-450) K/mm3 MPV 10.5 H (6-9.5) fl Anion Gap (5-15) MEQ/L - Radiology Exams Ordered Rad Exams-Entire Visit: Radiology Procedures Category Date Time Status CHEST 2 VIEWS (PA AND LAT) Urgent Exams 07/15/16 13:15 Completed Discharge Exam General Appearance: no apparent distress, alert Neurologic Exam: alert, oriented x 3, cooperative, normal mood/affect, nml cerebellar function, sensation nml, No motor deficits Skin Exam: normal color, warm, dry Eye Exam: PERRL, EOMI, eyes nml inspection Ears, Nose, Throat Exam: normal ENT inspection, pharynx normal, moist mucous membranes Neck Exam: normal inspection, non-tender, supple, full range of motion Respiratory Exam: normal breath sounds, lungs clear, No respiratory distress Cardiovascular Exam: regular rate/rhythm, normal heart sounds Gastrointestinal/Abdomen Exam: soft, No tenderness, No mass Extremity Exam: normal inspection, normal range of motion Back Exam: normal inspection, normal range of motion, No CVA tenderness, No vertebral tenderness Pelvic Exam: deferred Rectal Exam: deferred Final Diagnosis/Problem List - Final Discharge Diagnosis/Problem (1) Fever Status: Resolved (2) Metastatic breast cancer Status: Resolved - Discharge Discharge Date: 07/15/16 Disposition: Home, Self-Care Condition: Stable Prescriptions: New Levofloxacin [Levaquin] 250 mg PO DAILY #7 tablet Ondansetron HCl [Zofran] 4 mg PO Q6HPRN PRN #30 tablet PRN Reason: Nausea/Vomiting Famotidine 20 mg [Pepcid 20 MG] 20 mg PO BID #30 tablet PANTOPRAZOLE 40 mg Tablet [Protonix 40MG Tablet] 40 mg PO QAM #30 tab Continue Fulvestrant [Faslodex] 125 mg IM UD Naproxen [Naprosyn] 500 mg PO BID Gabapentin [Neurontin] 100 mg PO TID Hydrocodone Bit/Acetaminophen [[place] 5/325Mg] 1 each PO Q6H PRN PRN #10 tablet PRN Reason: Pain Discontinued Famotidine 20 mg [Pepcid 20 MG] 20 mg PO BID #60 tablet Omeprazole 20 MG [Prilosec 20 mg] 20 mg PO DAILY Instructions: Fever (Symptom) -- Adult Follow up with: ROD NOWAK [COURTESY STAFF] - (FOLLOWUP SCHEDULED) LUCAS REYEZ MD [Emergency Provider] - 07/22/16 10:15 am (PLEASE HAVE YOUR FAMILY ATTEND THIS APPOINTMENT WITH YOU. DR. REEYZ WOULD LIKE TO SPEAK WITH ALL OF YOU TOGETHER.) Forms: Discharge Instructions
== END 2016-07-15 14:40 | disposition home or self-care (01) ==
LOC: ED 23:51 → MED SURG 07-12 02:57
PROVIDERS: ADMIT General Practice; ATTEND General Practice
DX: R50.9 Fever, unspecified (principal); N39.0 Urinary tract infection, site not specified; C79.81 Secondary malignant neoplasm of breast; R53.1 Weakness; K21.9 Gastro-esophageal reflux disease without esophagitis; R79.89 Other specified abnormal findings of blood chemistry
CPT/HCPCS: 36415; 71010; 71020; 80053; 81000; 83605; 85025; 85027; 87040; 87631; 90686; 93268; 96360; 96361; 96374; 99285; G0378; J1956; J2270; J2405; P9612; A9270-GY